=== PATIENT | female | born 1945 | race African-American/Black ===

== ENCOUNTER → 2018-05-22 | Outpatient (CLI) | payer MEDICARE ==
[~2018-05-22] MED LIST: ATENOLOL; BARIUM SULFATE 176 GM SUSP.RECON ONE; BARIUM SULFATE 450ML ORAL SUSP ONE; LISINOPRIL; POTASSIUM
== END | disposition home or self-care (01) ==
LOC: CT 10:39
PROVIDERS: ATTEND Internal Medicine Gastroenterology
DX: K76.0 Fatty (change of) liver, not elsewhere classified (principal); K57.90 Diverticulosis of intestine, part unspecified, without perforation or abscess without bleeding; Z90.710 Acquired absence of both cervix and uterus
CPT/HCPCS: 71046; 74176

== ENCOUNTER → 2018-09-18 | Outpatient (CLI) | payer MEDICARE ==
[~2018-09-18] MED LIST changes: -BARIUM SULFATE 176 GM SUSP.RECON ONE; -BARIUM SULFATE 450ML ORAL SUSP ONE
== END | disposition home or self-care (01) ==
LOC: CARD 08:47
PROVIDERS: ATTEND Psychiatry & Neurology Neurology
DX: G44.209 Tension-type headache, unspecified, not intractable (principal); R42 Dizziness and giddiness

== ENCOUNTER 2022-11-20 05:24 | Emergency (ER) | payer BC, MEDICARE ==
[2022-11-20] MEDS ORDERED: KETOROLAC 30MG/ML VIAL IV ONE (07:00)
[2022-11-20 07:18] LABS: EOSINOPHILS % 1.7 % (0.0-5.0); HEMATOCRIT. 40.4 % (36.0-48.0); HEMOGLOBIN. 13.7 g/dL (12.0-16.0); LYMPHOCYTES % 25.3 % (20.0-50.0); MEAN CORPUSCULAR HEMOGLOBIN 32.2 pg (28.0-32.0); MEAN CORPUSCULAR VOLUME 94.9 fL (81.0-99.0); MEAN PLATELET VOLUME 8.1 fl (7.4-10.4); MONOCYTES % 5.6 % (2.0-8.0); NEUTROPHILS % 66.4 % (40.0-76.0); PLATELET 372 x1000/uL (130-400); RED BLOOD CELL COUNT 4.26 mill/uL (4.2-5.4); RED CELL DISTRIBUTION WIDTH 15.1 % (11.6-14.6)
[2022-11-20 07:23] LABS: CLARITY URINE CLEAR (CLEAR); COLOR URINE YELLOW (YELLOW); KETONES URINE NEGATIVE (NEGATIVE); LEUKOCYTE ESTERASE URINE NEGATIVE (NEGATIVE); NITRITE URINE NEGATIVE (NEGATIVE); OCCULT BLOOD URINE NEGATIVE (NEGATIVE); PH URINE 5.5 (4.5-8.0); PROTEIN URINE NEGATIVE (NEGATIVE); SPECIFIC GRAVITY URINE 1.007 (1.005-1.030); UROBILINOGEN URINE 0.2 E.U./dL (0.2-1.0)
[2022-11-20 11:30] VITALS: BP 142/78; PULSE 95; RESP 15; TEMP 97.8
== END 2022-11-20 12:01 | disposition home or self-care (01) ==
LOC: ER 05:24
DX: M16.12 Unilateral primary osteoarthritis, left hip (principal); I10 Essential (primary) hypertension; E11.9 Type 2 diabetes mellitus without complications
CPT/HCPCS: 36415; 73502; 80048; 81003; 85025; 96374; 99285; J1885

== ENCOUNTER 2025-05-11 11:51 | Emergency (ER) | payer BC ==
[~2025-05-11] VITALS: Ht 170.2 cm; Wt 100.0 kg
[2025-05-11 12:01] VITALS: O2SAT 99
[2025-05-11] MEDS ORDERED: IBUP-1455 MT (16:30)
[2025-05-11] MEDS ORDERED: LIDO-53 TP (16:30)
[2025-05-11] MEDS ORDERED: ACET-2708 MT (16:30)
[2025-05-11] MEDS: KETOROLAC 15MG/ML VIAL IM ONE (16:39)
[2025-05-11] MEDS: LIDOCAINE 5% PATCH TOP SCH (16:39)
[2025-05-11 16:43] VITALS: BP 130/80; PULSE 90; RESP 16; TEMP 36.9; O2SAT 99
== END 2025-05-11 16:43 | disposition home or self-care (01) ==
LOC: ER 11:51
DX: M54.50 Low back pain, unspecified (principal); M54.16 Radiculopathy, lumbar region; E11.9 Type 2 diabetes mellitus without complications; I10 Essential (primary) hypertension
CPT/HCPCS: 99283; 96372; J1885